=== PATIENT | female | born 2000 | race Caucasian/White ===

== ENCOUNTER 2018-10-23 19:31 | Emergency (ER) | payer MEDICAID ==
[~2018-10-23] VITALS: Ht 165.1 cm; Wt 57.5 kg
[2018-10-23 20:22] LABS: INR 1.1 INR; PROTHROMBIN TIME 11.4 SECONDS (9.0-12.0)
[2018-10-23 20:23] LABS: ALANINE AMINOTRANSFERASE 15 U/L (12-78); ALBUMIN 4.4 G/DL (3.4-5.0); ALBUMIN/GLOBULIN RATIO 1.4 (1.1-1.5); ALKALINE PHOSPHATASE 44 IU/L (20-180); ANION GAP 12 (8-16); ASPARTATE AMINO TRANSFERASE 14 U/L (10-37); BILIRUBIN,TOTAL 0.4 MG/DL (0.1-1.0); BLOOD UREA NITROGEN 8 MG/DL (7-18); BUN/CREATININE RATIO 6.9 (6.6-38.0); CALCIUM 9.5 MG/DL (8.5-10.1); CHLORIDE 101 MMOL/L (99-107); CREATININE 1.16 MG/DL (0.40-0.90); GLUCOSE 128 MG/DL (70-104); LIPASE 60 U/L (73-393); POTASSIUM 3.2 MMOL/L (3.5-5.1); SODIUM 137 MMOL/L (135-145); TOTAL CARBON DIOXIDE 24.4 MMOL/L (24-32); TOTAL PROTEIN 7.6 G/DL (6.4-8.2); eGFR 60 ML/MIN
[2018-10-23 20:29] LABS: HCG SERUM QL POSITIVE
[2018-10-23 20:31] LABS: BASOPHILS % (AUTO) 0.4 % (0-1); EOSINOPHILS % (AUTO) 0 % (0-6); HEMATOCRIT 38.7 % (35.0-45.0); HEMOGLOBIN 13.2 g/dl (12.0-16.0); LYMPHOCYTES # (AUTO) 0.5 X10'3 (1.1-4.8); LYMPHOCYTES % (AUTO) 4.2 % (21-51); MEAN CORPUSCULAR HEMOGLOBIN 30.3 PG (27.0-31.0); MEAN CORPUSCULAR HGB CONC 34.1 % (33.0-36.5); MEAN CORPUSCULAR VOLUME 88.8 FL (78-98); MEAN PLATELET VOLUME 8.1 FL (7.4-10.4); MONOCYTES # (AUTO) 0.4 X10'3 (0-0.9); MONOCYTES % (AUTO) 2.8 % (2-12); NEUTROPHILS % (AUTO) 92.6 % (42-75); PLATELET COUNT 330 X10'3 (140-440); RED BLOOD COUNT 4.36 X10'6 (4.20-5.60); RED CELL DISTRIBUTION WIDTH 13.4 % (11.5-14.5)
[2018-10-23 20:47] LABS: CLARITY,URINE CLEAR (Clear); COLOR,URINE YELLOW (Yellow); GLUCOSE, URINE NEGATIVE (Neg); KETONES,URINE >=80 mg/dl (Neg); LEUKOCYTE ESTERASE ,URINE NEGATIVE (Neg); NITRITES, URINE NEGATIVE (Neg); OCCULT BLOOD,URINE TRACE-INTACT (Neg); PH,URINE 5.5 (4.8-8.0); PROTEIN,URINE TRACE mg/dl (Neg); UROBILINOGEN,URINE 0.2 E.U/dL (0.2-1.0)
[2018-10-23 20:48] LABS: URINE HCG POSITIVE (NEG)
[2018-10-23 20:50] LABS: UA COLLECTION TYPE STRAIGHT CATH
[2018-10-23 20:53] LABS: AMORPHOUS URATES 2+; MUCUS STRANDS MANY /LPF (Neg); SQUAMOUS EPITHELIAL CELL,UR MANY /LPF (FEW)
[2018-10-23 20:54] LABS: BACTERIA,URINE FEW /HPF (Neg); RBC,URINE 0-2 /HPF (0-2); WBC,URINE 0-4 /HPF (0-4)
[2018-10-23 21:46] VITALS: BP 114/69
== END 2018-10-23 22:10 | disposition home or self-care (01) ==
LOC: ER 19:31
DX: O20.0 Threatened abortion (principal); O99.331 Smoking (tobacco) complicating pregnancy, first trimester; F17.200 Nicotine dependence, unspecified, uncomplicated; Z3A.01 Less than 8 weeks gestation of pregnancy
CPT/HCPCS: 36415; 76801; 80053; 81001; 81025; 83690; 84702; 84703; 85025; 85610; 86900; 86901; 99284

== ENCOUNTER 2018-11-30 14:39 | Emergency (ER) | payer MEDICAID ==
[~2018-11-30] VITALS: Ht 165.1 cm; Wt 50.0 kg
[2018-11-30 14:55] VITALS: BP 118/82
[2018-11-30 15:31] LABS: PREOP URINE HCG NEGATIVE (NEGATIVE)
[2018-11-30 15:41] LABS: CLARITY,URINE SLIGHTLY CLOUDY (Clear); COLOR,URINE YELLOW (Yellow); GLUCOSE, URINE NEGATIVE (Neg); KETONES,URINE >=80 mg/dl (Neg); LEUKOCYTE ESTERASE ,URINE MODERATE (Neg); NITRITES, URINE POSITIVE (Neg); OCCULT BLOOD,URINE SMALL (Neg); PROTEIN,URINE 30 mg/dl (Neg)
[2018-11-30 15:52] LABS: UA COLLECTION TYPE CLN CATCH MIDSTREAM
[2018-11-30 15:53] LABS: BACTERIA,URINE 4+ /HPF (Neg); RBC,URINE 0-2 /HPF (0-2); SQUAMOUS EPITHELIAL CELL,UR FEW /LPF (FEW); WBC,URINE TNTC /HPF (0-4)
[2018-11-30 15:54] LABS: WBC CLUMPS,URINE FEW /HPF (NEGATIVE)
[2018-11-30] MEDS ORDERED: acetaminophen 325mg tablet PO ONE (17:05)
[2018-11-30] MEDS ORDERED: ondansetron 4mg rapidly disintigrating tab PO ONE (17:05)
[2018-11-30] MEDS ORDERED: ONDA4TAB6 PO (17:06)
[2018-11-30] MEDS ORDERED: SULF1TAB49 PO (17:06)
--- NOTE | 2018-11-30 17:20 | NUR ---
Patient seen and assessed by provider.
--- NOTE | 2018-12-02 08:09 | NUR ---
Contacted patient and instructed her to stop Bactrim. Keflex 500 mg, PO TID for 10 days called to [facility] per Dr. Goodson order and patient request.
== END 2018-11-30 17:20 | disposition home or self-care (01) ==
LOC: ER 14:39
DX: N10 Acute pyelonephritis (principal); J45.909 Unspecified asthma, uncomplicated; Z86.73 Personal history of transient ischemic attack (TIA), and cerebral infarction without residual deficits; Z79.899 Other long term (current) drug therapy
CPT/HCPCS: 81001; 81025; 87077; 87088; 87186; 99283

== ENCOUNTER 2023-07-30 10:19 | Emergency (ER) | payer MEDICAID ==
[~2023-07-30] VITALS: Ht 165.1 cm; Wt 63.6 kg
[~2023-07-30 10:19] MED LIST: ONDA4TAB6 PO
[2023-07-30 10:22] VITALS: TEMP 97.8
--- NOTE | 2023-07-30 10:40 | NUR ---
PT PRESENTS TO THE ER WITH LEFT SIDED FLANK PAIN THAT STARTED 2 DAYS AGO. PT DENIES PAIN OR BURNING WITH URINATION. PT DENEIS ABD PAIN. PT STATES THE PAIN IS INTERMITTENT 8/10.
--- NOTE | 2023-07-30 10:41 | NUR ---
BOYFRIEND OF PT AT BEDSIDE.
[2023-07-30 10:47] LABS: BILIRUBIN,URINE MODERATE (Neg); CLARITY,URINE CLOUDY (Clear); GLUCOSE, URINE NEGATIVE (Neg); KETONES,URINE 40 mg/dl (Neg); LEUKOCYTE ESTERASE ,URINE TRACE (Neg); NITRITES, URINE NEGATIVE (Neg); OCCULT BLOOD,URINE LARGE (Neg); PROTEIN,URINE 100 mg/dl (Neg)
[2023-07-30 10:50] LABS: COLOR,URINE DARK YELLOW (Yellow); UA COLLECTION TYPE CLN CATCH MIDSTREAM
[2023-07-30 10:51] LABS: URINE HCG NEGATIVE (NEG)
[2023-07-30 11:00] LABS: BACTERIA,URINE 3+ /HPF (Neg); MUCUS STRANDS MANY /LPF (Neg); RBC,URINE TNTC /HPF (0-2); SQUAMOUS EPITHELIAL CELL,UR MANY /LPF (FEW)
[2023-07-30] MEDS ORDERED: ketorolac tromethamine 15mg/ml inj. IM ONE (11:40)
[2023-07-30 11:57] LABS: BILIRUBIN,URINE MODERATE (Neg); CLARITY,URINE SLIGHTLY CLOUDY (Clear); COLOR,URINE YELLOW (Yellow); GLUCOSE, URINE NEGATIVE (Neg); KETONES,URINE >=80 mg/dl (Neg); LEUKOCYTE ESTERASE ,URINE NEGATIVE (Neg); NITRITES, URINE NEGATIVE (Neg); OCCULT BLOOD,URINE MODERATE (Neg); PH,URINE 6.5 (4.8-8.0); PROTEIN,URINE 30 mg/dl (Neg)
[2023-07-30 12:01] LABS: UA COLLECTION TYPE CLN CATCH MIDSTREAM
[2023-07-30 12:06] LABS: BACTERIA,URINE 3+ /HPF (Neg); MUCUS STRANDS FEW /LPF (Neg); SQUAMOUS EPITHELIAL CELL,UR MANY /LPF (FEW)
[2023-07-30] MEDS ORDERED: CIPR-429 PO (12:27)
[2023-07-30 12:35] VITALS: BP 96/62; PULSE 63; RESP 18; O2SAT 97
== END 2023-07-30 12:40 | disposition home or self-care (01) ==
LOC: ER 10:20
DX: N39.0 Urinary tract infection, site not specified (principal); J45.909 Unspecified asthma, uncomplicated
CPT/HCPCS: 81001; 81025; 87088; 96372; 99285; J1885

== ENCOUNTER 2023-08-15 18:09 | Emergency (ER) | payer MEDICAID ==
[~2023-08-15] VITALS: Ht 165.1 cm; Wt 60.8 kg
[~2023-08-15 18:09] MED LIST changes: +CIPR-429 PO
[2023-08-15 18:27] VITALS: TEMP 97.8
[2023-08-15] MEDS ORDERED: morphine 4 MG/ML inj SYRINge IV PRN (21:00)
[2023-08-15] MEDS ORDERED: ondansetron/PF 4mg/2ml inj IV ONE (21:00)
[2023-08-15] MEDS ORDERED: normal saline 1000ML IV soln IVB ONE (21:00)
[2023-08-15 21:19] LABS: BASOPHILS # (AUTO) 0.1 X10'3 (0-0.2); BASOPHILS % (AUTO) 0.3 % (0-1); EOSINOPHILS % (AUTO) 0 % (0-6); HEMATOCRIT 39.5 % (35.0-45.0); HEMOGLOBIN 13.3 g/dl (12.0-16.0); LYMPHOCYTES # (AUTO) 1.2 X10'3 (1.1-4.8); LYMPHOCYTES % (AUTO) 6.6 % (21-51); MEAN CORPUSCULAR HEMOGLOBIN 30.5 PG (27.0-31.0); MEAN CORPUSCULAR HGB CONC 33.5 g/dL (33.0-36.5); MEAN CORPUSCULAR VOLUME 90.9 FL (78-98); MONOCYTES # (AUTO) 1.1 X10'3 (0-0.9); MONOCYTES % (AUTO) 6.4 % (2-12); NEUTROPHILS # (AUTO) 15.3 X10'3 (1.8-7.7); NEUTROPHILS % (AUTO) 86.7 % (42-75); PLATELET COUNT 343 X10'3 (140-440); RED BLOOD COUNT 4.35 X10'6 (4.20-5.60); RED CELL DISTRIBUTION WIDTH 13.5 % (11.5-14.5); WHITE BLOOD COUNT 17.7 X10'3 (4.5-11.0)
[2023-08-15 21:33] LABS: ALANINE AMINOTRANSFERASE 14 U/L (12-78); ALBUMIN 4.2 G/DL (3.4-5.0); ALBUMIN/GLOBULIN RATIO 1.4 (1.1-1.5); ALKALINE PHOSPHATASE 45 IU/L (46-116); ANION GAP 11 (8-16); ASPARTATE AMINO TRANSFERASE 27 U/L (10-37); BILIRUBIN,TOTAL 0.6 MG/DL (0.1-1.0); BLOOD UREA NITROGEN 11 MG/DL (7-18); BUN/CREATININE RATIO 10.5 (10.0-20.0); CALCIUM 9.5 MG/DL (8.5-10.1); CHLORIDE 104 MMOL/L (99-107); CREATININE 1.05 MG/DL (0.40-0.90); GLUCOSE 109 MG/DL (70-104); LIPASE < 50 U/L (73-393); POTASSIUM 3.5 MMOL/L (3.5-5.1); SODIUM 139 MMOL/L (135-145); TOTAL CARBON DIOXIDE 23.9 MMOL/L (24-32); TOTAL PROTEIN 7.2 G/DL (6.4-8.2); eCRCL 74 ML/MIN; eGFR 64 ML/MIN
[2023-08-15 21:43] LABS: URINE HCG NEGATIVE (NEG)
[2023-08-15] MEDS ORDERED: morphine 4 MG/ML inj SYRINge IV ONE (21:45)
[2023-08-15 21:56] LABS: BILIRUBIN,URINE SMALL (Neg); CLARITY,URINE CLOUDY (Clear); COLOR,URINE YELLOW (Yellow); GLUCOSE, URINE NEGATIVE (Neg); KETONES,URINE >=80 mg/dl (Neg); LEUKOCYTE ESTERASE ,URINE NEGATIVE (Neg); NITRITES, URINE NEGATIVE (Neg); OCCULT BLOOD,URINE LARGE (Neg); PH,URINE 6.5 (4.8-8.0); PROTEIN,URINE TRACE mg/dl (Neg)
[2023-08-15 22:01] LABS: UA COLLECTION TYPE CLN CATCH MIDSTREAM
[2023-08-15 22:08] LABS: BACTERIA,URINE FEW /HPF (Neg); MUCUS STRANDS MANY /LPF (Neg); RBC,URINE TNTC /HPF (0-2); SQUAMOUS EPITHELIAL CELL,UR MANY /LPF (FEW); WBC,URINE 0-4 /HPF (0-4)
[2023-08-16] MEDS ORDERED: FLO0.4C PO (00:06)
[2023-08-16] MEDS ORDERED: HYDR-3965 PO ×2 (00:06→00:08)
[2023-08-16] MEDS ORDERED: ONDA8TAB13 PO (00:06)
[2023-08-16] MEDS ORDERED: tamsulosin 0.4mg capsule PO ONE (00:37)
[2023-08-16 00:50] VITALS: BP 115/78; PULSE 69; RESP 16; O2SAT 100
== END 2023-08-16 00:52 | disposition home or self-care (01) ==
LOC: ER 18:10
DX: N23 Unspecified renal colic (principal); J45.909 Unspecified asthma, uncomplicated; Z79.2 Long term (current) use of antibiotics; Z79.899 Other long term (current) drug therapy
CPT/HCPCS: 36415; 74176; 80053; 81001; 81025; 83690; 85025; 96361; 96374; 96375; 96376; 99285; J2270; J2405; J7030

== ENCOUNTER 2024-01-15 14:48 | Emergency (ER) | payer MEDICAID ==
[~2024-01-15] VITALS: Ht 165.1 cm; Wt 64.5 kg
[~2024-01-15 14:48] MED LIST changes: -CIPR-429 PO; +ONDA8TAB13 PO
[2024-01-15 14:52] VITALS: BP 120/54; PULSE 85; RESP 16; TEMP 98.3; O2SAT 100
== END 2024-01-15 15:12 | disposition home or self-care (01) ==
LOC: ER 14:49
DX: O26.891 Other specified pregnancy related conditions, first trimester (principal); M43.6 Torticollis; Z3A.01 Less than 8 weeks gestation of pregnancy; Z79.899 Other long term (current) drug therapy
CPT/HCPCS: 99282